=== PATIENT | male | born 1975 | race Caucasian/White ===

== ENCOUNTER → 2024-04-25 18:25 | Outpatient (REF) | payer OTHER, SELFPAY | LOC: RAD 18:25 | PROVIDERS: ATTENDING PHYSICIAN Specialist | DX: N20.0 Calculus of kidney (principal) | CPT/HCPCS: 74018 ==

== ENCOUNTER 2024-08-30 06:50 | Day surgery (SDC) | payer OTHER, SELFPAY ==
[2024-08-25 08:52] LABS: Hematocrit 41.1 % (39.0-52.0); Hemoglobin 13.3 g/dL (13.0-18.0); Mean Corp Hgb Conc. 32.4 g/dL (33.0-37.0); Mean Corpuscular Hgb 29.4 pg (27.0-31.0); Mean Corpuscular Volume 90.9 fL (80.0-94.0); Mean Platelet Volume 9.6 fL (7.4-10.4); Platelet Count 292 10^3/uL (130-400); Red Blood Cell Count 4.52 10^6/uL (4.70-6.10); Red Cell Dist. Width 13.4 % (11.5-14.5); White Blood Cell Count 8.2 10^3/uL (4.8-10.8)
[2024-08-25 11:06] LABS: Blood Urea Nitrogen 19 mg/dl (9-20); Carbon Dioxide 26 mmol/L (22-30); Chloride 98 mmol/L (98-107); Glucose 143 mg/dl (70-99); Potassium 4.7 mmol/L (3.5-5.1); Sodium 138 mmol/L (135-145); eGFR > 60.00
[2024-08-30] VITALS (7 sets, daily range): BP systolic 122–159; BP diastolic 75–97
[2024-08-30 09:01] LABS: Urine Albumin Negative (Neg - Trace); Urine Bilirubin Negative (Negative); Urine Character Clear (Clear); Urine Color Yellow; Urine Glucose Negative (Negative); Urine Ketone Negative (Negative); Urine Leukocyte Trace (Negative); Urine Nitrite Negative (Negative); Urine Occult Blood 1+ (Negative); Urine Specific Gravity 1.025 (<1.030); Urine Urobilinogen Negative (Neg - 1+)
[2024-08-30 09:14] LABS: Glucose - Point of Care 147 mg/dl (70-99)
[2024-08-30] MEDS: NORMOSOL-R/PLASMALYTE-A 1000 IV (09:15)
[2024-08-30 09:24] LABS: Urine Squamous Cell 0-2 /LPF (Few)
[2024-08-30 09:25] LABS: Urine Bacteria Few (Negative)
--- NOTE | 2024-08-30 12:24 | SUR.PHASEI ---
Rec'd on stretcher with HOb elevated low fowlers snoring loudly, oriented x 3 by RN, very sleepy
[2024-08-30 12:29] LABS: Glucose - Point of Care 127 mg/dl (70-99)
--- NOTE | 2024-08-30 12:33 | SUR.PHASEI ---
Arouses with stimuli, Dr Linn in, denies c/o quickly falls back to sleep, Report to Daphne Crook
[2024-08-30] MEDS: Pyridium 200 MG PO (12:46)
[2024-08-30] MEDS: FLOMAX 0.4 MG PO (12:46)
== END 2024-08-30 13:45 | disposition home or self-care (01) ==
LOC: SDS 06:50
PROVIDERS: ATTENDING PHYSICIAN Specialist; FAMILY PHYSICIAN Internal Medicine
PROC: BT1F1ZZ Fluoroscopy of Left Kidney, Ureter and Bladder using Low Osmolar Contrast (ICD-10-PCS; 2024-08-30)
PROC: 0T778DZ Dilation of Left Ureter with Intraluminal Device, Via Natural or Artificial Opening Endoscopic (ICD-10-PCS; 2024-08-30)
PROC: 0TC78ZZ Extirpation of Matter from Left Ureter, Via Natural or Artificial Opening Endoscopic (ICD-10-PCS; 2024-08-30)
DX: N20.2 Calculus of kidney with calculus of ureter (principal)
CPT/HCPCS: 52356; 36415; 74420; 76000; 80048; 81003; 81015; 82365; 82962; 85027; 87086; 93005; A4300; C1894; C2617

== ENCOUNTER 2025-02-11 08:10 | Emergency (ER) | payer OTHER, SELFPAY ==
[2025-02-11 08:12] VITALS: BP 166/98
[2025-02-11 08:34] LABS: % Basophils 0.3 % (0-2); % Eosinophils 0.3 % (0-6); % Immature Granulocytes 0.3 % (0-0.5); % Lymphocytes 15.6 % (20.5-51.1); % Monocytes 6.3 % (1.7-9.3); % Neutrophils 77.2 % (42.2-75.2); Absolute Lymphocytes 1.9 10^3/uL (1.2-3.4); Absolute Monocytes 0.8 10^3/uL (0.1-0.6); Absolute Neutrophils 9.3 10^3/uL (1.4-6.5); Hematocrit 45.8 % (39.0-52.0); Hemoglobin 15.3 g/dL (13.0-18.0); Mean Corp Hgb Conc. 33.4 g/dL (33.0-37.0); Mean Corpuscular Hgb 29.1 pg (27.0-31.0); Mean Corpuscular Volume 87.1 fL (80.0-94.0); Mean Platelet Volume 9.8 fL (7.4-10.4); Nucleated Red Blood Cells % 0 % (-); Platelet Count 260 10^3/uL (130-400); Red Blood Cell Count 5.26 10^6/uL (4.70-6.10)
[2025-02-11 08:41] LABS: AST (SGOT) 27 U/L (17-59); Alkaline Phosphatase 63 U/L (38-126); Blood Urea Nitrogen 22 mg/dl (9-20); Calcium 10.6 mg/dl (8.4-10.2); Carbon Dioxide 23 mmol/L (22-30); Chloride 106 mmol/L (98-107); Glucose 186 mg/dl (70-99); Potassium 4.5 mmol/L (3.5-5.1); Sodium 144 mmol/L (135-145); Total Bilirubin 0.9 mg/dl (0.2-1.3); Total Protein 8.1 g/dl (6.3-8.2); eGFR > 60.00
[2025-02-11 08:51] LABS: ALT (SGPT) 35 U/L (0-50)
[2025-02-11 08:52] VITALS: BMI 31.5
[2025-02-11] MEDS: NSS 1000 IV (09:21)
[2025-02-11] MEDS: TORADOL 30 MG IV (09:21)
[2025-02-11] MEDS: ZOFRAN 4 MG IV (09:21)
--- NOTE | 2025-02-11 09:36 | ED.GENMED ---
History of Present Illness
General
Chief Complaint: Flank Pain
Source: patient, records and spouse
Time Seen by Provider: 02/11/25 09:01
History of Present Illness
History of Present Illness:
49-year-old male with past medical history of hypertension, hyperlipidemia, fiz-nmracis-uvkflabbk diabetes, BPH, previous kidney stones status post laser lithotripsy presenting to the emergency department for evaluation of a sudden onset right flank
pain that began yesterday morning lasting only a short matter of time and then resolving but since this morning around 5:30 AM has had sharp and severe pain to the right flank radiating towards the right groin accompanied with 2 episodes of
nonbloody nonbilious emesis described feel exactly the same as previous kidney stones. Patient did take a Percocet around 715 but has not had any relief with this. He follows with urologist, Dr. Linn. Denies any fevers, chills, rigors,
urinary frequency/urgency/dysuria or hematuria. No other concerns presently.
Past History
Past History
ED Past Medical History: HTN, Hypercholesterolemia, NIDDM and Other (Kidney stones)
ED Past Surgical History: Urological and Other
Social History
Tobacco: Non-smoker
Alcohol: None
Drug: None
Personal:
Living: with family
Review of Systems
Review of Systems
All Other Systems: ROS reviewed and negative except as documented in HPI and ROS
Phy Exam
Physical Exam
Physical Exam:
GENERAL: Alert , appears very uncomfortable
EYE: clear conjunctiva b/l
HEAD: NCAT
ENT: o/p clr, mmm.
CARDIAC: Regular rate and rhythm .
LUNGS: Clear breath sounds bilaterally, no acute respiratory distress, no wheezes/rales/rhonchi
ABDOMEN: Soft, without focal tenderness, no r/g, mild to moderate right CVA tenderness
NEUROLOGICAL: Alert and oriented
SKIN: Warm and dry, skin intact.
MUSCULOSKELETAL: No edema, well perfused.
PSYCH: Normal and appropriate interaction.
Scores
Heart Failure Risk
Heart Failure Risk Score: Not Applicable
Heart Score for Chest Pain Patients
STEMI patient?: Not applicable
Withdrawal Assessment of Alcohol
Withdrawal Assessment Completed?: Not applicable
Course
Orders/Labs/Results
Orders:
Orders
02/11/25 08:22
Complete Blood Count/With Diff Urgent
Comprehensive Metabolic Panel Urgent
02/11/25 09:14
CT Abd/pel Without Iv Or Oral Urgent
Comment:
Reason For Exam: right flank pain, hx stones
0.9% Sodium Chloride 1000 ml [Nss] 1,000 ml IV BOLUS
Ketorolac [Toradol] 30 mg IV NOW STA
Ondansetron Injectable [Zofran] 4 mg IV NOW STA
02/11/25 09:28
Urinalysis Reflex To Culture Urgent
Date Specimen was Collected: 02/11/25
Time Specimen was Collected: 09:28
Urine Microscopic Reflex Cult Urgent
Abnormal Lab Results
02/11/25 02/11/25
08:22 09:28
WBC 12.0 H 10^3/uL
(4.8-10.8)
Absolute Neuts (auto) 9.3 H 10^3/uL
(1.4-6.5)
Absolute Monos (auto) 0.8 H 10^3/uL
(0.1-0.6)
Neutrophils % 77.2 H %
(42.2-75.2)
Lymphocytes % 15.6 L %
(20.5-51.1)
BUN 22 H mg/dl
(9-20)
Glucose 186 H mg/dl
(70-99)
Calcium 10.6 H mg/dl
(8.4-10.2)
Urine Ketones 1+ A
(Negative)
Ur Occult Blood Reflex 4+ A
(Negative)
Urine RBC 30-40 A /HPF
(0-2)
Urine Bacteria (Reflex) Few A
(Negative)
Urine Albumin (Reflex) 1+ A
(Neg - Trace)
02/11/25 08:22
02/11/25 08:22
Vital Signs
Initial and Last Documented VS:
Initial Vital Signs
Temp Pulse Resp BP Pulse Ox
98.9 F 77 28 166/98 100
02/11/25 08:12 02/11/25 08:12 02/11/25 08:12 02/11/25 08:12 02/11/25 08:12
Last Documented Vital Signs
Temp Pulse Resp BP Pulse Ox
98.4 F 74 16 144/80 99
02/11/25 11:37 02/11/25 11:37 02/11/25 11:37 02/11/25 11:37 02/11/25 11:37
MDM/Problems Addressed
Differential Diagnosis Includes:
- Renal/ureteral colic/kidney stone
- Urinary tract infection/pyelonephritis
- Musculoskeletal etiology
- Appendicitis
- Cholecystitis
MDM/Problems Addressed:
49-year-old male presenting to the ER for evaluation of sudden onset right flank pain nausea and vomiting, symptoms very reminiscent of previous kidney stones. Appears quite uncomfortable on my exam. Already took a dose of Percocet at 715 with no
relief. Will treat here with Toradol, Zofran and fluids. CT of the abdomen and pelvis ordered. Reassessment following.
Chronic conditions affecting care: Other (Previous kidney stones)
*Pulse Oximetry
SaO2: 100
Oxygen Mode of Delivery: Room air
Patient hypoxic: no
*Critical Care Note
Total Time (30-74mins, 75-104mins- exclusive of procedures): Not Applicable
Data Reviewed
Review of Other/Old Records Reveals: Labs, Records and Radiology Studies
Patient Management
Escalation/DeEscalation of care consider admission/obs:
4mm stone distal right ureter. Pain remains controlled. No signs of infection. Patient stable for discharge home. Will follow up with urology. Aware of return precautions to the ER
ED Attending Note
-
Portions of this chart may have been created with voice recognition software.� Occasional wrong word or��sound alike� substitutions may have occurred due to the inherent limitations of voice recognition software.
Discharge Plan
Departure
Patient Disposition: Home (Routine Discharge)
Date of Disposition: 02/11/25
Time of Disposition: 11:24
Patient with high blood pressure during this ER visit?: Yes
Discharge Problem:
Ureterolithiasis, Ureteral colic
Instructions: Kidney Stones (DC)
Prescriptions:
New
tamsulosin [Flomax] 0.4 mg capsule
0.4 mg PO DAILY Qty: 10 0RF
oxycodone-acetaminophen [Percocet] 5-325 mg tablet
1 tab PO Q6HPRN PRN (Reason: pain) Qty: 8 0RF
ondansetron 4 mg tablet,disintegrating
4 mg PO TIDPRN PRN (Reason: nausea/vomiting) Qty: 10 0RF
No Action
metformin 500 mg Tablet
1,000 mg PO BID
pravastatin 40 mg Tablet
40 mg PO HS
valsartan 80 mg Tablet
80 mg PO HS
tamsulosin 0.4 mg Capsule
0.4 mg PO PRN PRN (Reason: symptoms of kidney stones)
Co Q-10 300 mg Capsule
300 mg PO DAILY
cholecalciferol (vitamin D3) [Vitamin D3] 50 mcg (2,000 unit) Capsule
50 mcg PO DAILY
Fish Oil
1,400 mg PO DAILY
allopurinol 100 mg Tablet
100 mg PO DAILY
acetaminophen [Tylenol] 325 mg Tablet
650 mg PO Q4H PRN (Reason: pain)
sodium bicarbonate 650 mg Tablet
650 mg PO BID
Referrals:
Jm Linn MD [Active, Urology]
Corky Radford MD [Family Provider, Internal Medicine]
Interventions
Interventions:
*Risk Screen - Suicide Last Done: 02/11/25 08:12
*General Assessment Last Done: 02/11/25 08:52
*Neglect/Abuse Screening Last Done: 02/11/25 08:12
*ED COVID-19 Vaccine History Last Done: 02/11/25 08:52
*Nursing Disposition Last Done: 02/11/25 11:38
LK-Xeqgod-Erjjrqmmhg Assessment Last Done: 02/11/25 09:40
ED-Male Genitourinary Assessment Last Done: 02/11/25 09:40
Discharge Date and Time
Discharge Date/Time: 02/11/25 11:38
Print Language: UPPER SORBIAN
[2025-02-11 09:48] LABS: Urine Albumin 1+ (Neg - Trace); Urine Bilirubin Negative (Negative); Urine Character Clear (Clear); Urine Color Yellow; Urine Glucose Negative (Negative); Urine Ketone 1+ (Negative); Urine Leukocyte Negative (Negative); Urine Nitrite Negative (Negative); Urine Occult Blood 4+ (Negative); Urine Urobilinogen Negative (Neg - 1+)
[2025-02-11 10:26] LABS: Urine Bacteria Few (Negative); Urine Mucus Few; Urine Red Blood Cell 30-40 /HPF (0-2); Urine Squamous Cell 0-2 /LPF (Few); Urine White Cell 0-2 /HPF (0-5)
[2025-02-11 11:37] VITALS: BP 144/80
== END 2025-02-11 11:38 | disposition home or self-care (01) ==
LOC: EMR 08:10
PROVIDERS: Emergency Medicine; Physician Assistant Medical; EMERGENCY PHYSICIAN Student in an Organized Health Care Education/Training Program; FAMILY PHYSICIAN Internal Medicine
DX: N20.1 Calculus of ureter (principal); R11.2 Nausea with vomiting, unspecified; E11.9 Type 2 diabetes mellitus without complications; I10 Essential (primary) hypertension; E78.00 Pure hypercholesterolemia, unspecified; Z87.442 Personal history of urinary calculi; Z79.84 Long term (current) use of oral hypoglycemic drugs
CPT/HCPCS: 99284; 96374; 96375; 96361 ×2; 74176; 80053; 81003; 81015; 85025